=== PATIENT | female | born 1980 | race Caucasian/White ===

== ENCOUNTER 2017-02-18 17:58 | Emergency (ER) | payer OTHER ==
[~2017-02-18] VITALS: Ht 170.2 cm; Wt 56.8 kg
[2017-02-18] MEDS ORDERED: AUGMENTIN875 MG PO (22:36)
[2017-02-18] MEDS ORDERED: INDOCIN50 MG PO (22:37)
[2017-02-18 23:07] VITALS: BP 111/74
== END 2017-02-18 23:08 | disposition home or self-care (01) ==
LOC: EME 17:58
DX: T84.622A Infection and inflammatory reaction due to internal fixation device of right tibia, initial encounter (principal); T84.196A Other mechanical complication of internal fixation device of bone of right lower leg, initial encounter; Z91.81 History of falling
CPT/HCPCS: 73564; 73590; 83605; 85025; 87040; 99281; 99284; J0690; J1885